=== PATIENT | female | born 1990 | race Caucasian/White ===

== ENCOUNTER → 2016-09-23 | Day surgery (SDC) | payer BC, OTHER ==
[~2016-09-23] MED LIST: Lactated Ringers 1,000 ML IV SCH; Propofol 200 MG/20 ML SDV IV ONE
[2016-09-23 11:21] VITALS: BP 106/55
--- NOTE | 2016-09-24 08:38 | OR ---
DATE OF OPERATION: 09/23/2016 PREOPERATIVE DIAGNOSIS: UPPER ABDOMINAL PAIN. POSTOPERATIVE DIAGNOSIS: UPPER ABDOMINAL PAIN. SURGEON: Antonio Mcguire MD PROCEDURE: UPPER GI ENDOSCOPY WITH CLOTEST. ANESTHESIA: Xylocaine jelly and IV sedation by MARKETING DATABASE COORDINATOR. DESCRIPTION OF PROCEDURE: After the patient's oropharyngeal mucosa was anesthetized with help of Xylocaine jelly, the patient was made to swallow the gastroscope down. The patient's esophagus was normal. EG junction was close to 40 cm level. There was no hiatal hernia. Body of the stomach, antrum, pyloric channel, 1st and 2nd part of duodenum were examined. They were free of any tumor, mass, any polypoid lesion, any inflammatory process. There were no ulcers. There was no gastritis either. Multiple photographs were taken. Gastroscope was retroverted and fundus was examined, it was also satisfactory. A biopsy for CLOtest was taken. After multiple photographs were taken, gastroscope was gradually withdrawn. The patient tolerated the procedure well and left the operating room in satisfactory condition. GIULIANO/PRIETO /[id number]
== END ==
LOC: CC.SDS 09:00
PROVIDERS: ATTEND Surgery
DX: R10.10 Upper abdominal pain, unspecified (principal); Z88.8 Allergy status to other drugs, medicaments and biological substances; Z79.899 Other long term (current) drug therapy
CPT/HCPCS: 36415; 43239; 84703; 87081; J2704; J7120

== ENCOUNTER → 2022-08-02 | Day surgery (SDC) | payer BC ==
[~2022-08-02] MED LIST changes: +Ketamine 200 MG/20 ML MDV ONE; -Propofol 200 MG/20 ML SDV IV ONE; +Propofol 200 MG/20 ML SDV ONE; +fentaNYL 50 MCG/ML SDV ONE
[2022-08-02 11:46] VITALS: BP 122/87; PULSE 54
== END ==
LOC: CC.SDS 08:36
PROVIDERS: ATTEND Family Medicine
DX: K52.9 Noninfective gastroenteritis and colitis, unspecified (principal); E66.9 Obesity, unspecified; G43.909 Migraine, unspecified, not intractable, without status migrainosus; Z88.4 Allergy status to anesthetic agent; Z79.899 Other long term (current) drug therapy; Z98.890 Other specified postprocedural states; Z68.39 Body mass index [BMI] 39.0-39.9, adult
CPT/HCPCS: 36415; 84703; J2704; J3010